=== PATIENT | female | born 1945 | race Caucasian/White ===

== ENCOUNTER → 2023-09-01 09:45 | Outpatient (REF) | payer OTHER, SELFPAY | LOC: HWWDC 09:45 | PROVIDERS: ATTENDING PHYSICIAN Physician Assistant Medical | DX: Z12.31 Encounter for screening mammogram for malignant neoplasm of breast (principal) | CPT/HCPCS: 77063; 77067 ==

== ENCOUNTER → 2023-12-24 09:48 | Outpatient (REF) | payer OTHER, SELFPAY | LOC: WDC 09:48 | PROVIDERS: ATTENDING PHYSICIAN Physician Assistant Medical | DX: R92.2 Inconclusive mammogram (principal); R92.8 Other abnormal and inconclusive findings on diagnostic imaging of breast | CPT/HCPCS: 76641 ==

== ENCOUNTER → 2024-02-11 09:55 | Outpatient (REF) | payer OTHER, SELFPAY | LOC: MRI 3T 09:55 | PROVIDERS: ATTENDING PHYSICIAN Orthopaedic Surgery; FAMILY PHYSICIAN Physician Assistant Medical | DX: M76.32 Iliotibial band syndrome, left leg (principal) | CPT/HCPCS: 73721 ==

== ENCOUNTER → 2024-06-23 13:53 | Outpatient (REF) | payer OTHER, SELFPAY | LOC: WDC 13:53 | PROVIDERS: ATTENDING PHYSICIAN Physician Assistant Medical | DX: R92.8 Other abnormal and inconclusive findings on diagnostic imaging of breast (principal) | CPT/HCPCS: 76642 ==

== ENCOUNTER → 2024-09-01 09:44 | Outpatient (REF) | payer OTHER, SELFPAY | LOC: HWWDC 09:44 | PROVIDERS: ATTENDING PHYSICIAN Physician Assistant Medical | DX: Z12.31 Encounter for screening mammogram for malignant neoplasm of breast (principal) | CPT/HCPCS: 77063; 77067 ==